=== PATIENT | female | born 1990 | race Caucasian/White ===

== ENCOUNTER → 2016-12-28 | Outpatient (CLI) | payer BC ==
[~2016-12-28] MED LIST: BUPR-79 PO; IUD'IUD INT UTER; PHEN-876 PO; SULF800T23 PO
[2016-12-31 10:08] LABS: CHLAMYDIA TRACH RNA*** NOT DETECTED (NOT DETECTED); GC (NEIS GONORRHOEAE)RNA** NOT DETECTED (NOT DETECTED)
== END | disposition home or self-care (01) ==
LOC: C.LABSPEC 10:43
PROVIDERS: ATTEND Physician Assistant
DX: Z01.419 Encounter for gynecological examination (general) (routine) without abnormal findings (principal)

== ENCOUNTER → 2016-12-28 | Outpatient (CLI) | payer BC | END | disposition home or self-care (01) | LOC: C.PAPS 11:46 | PROVIDERS: ATTEND Physician Assistant | DX: Z01.419 Encounter for gynecological examination (general) (routine) without abnormal findings (principal) ==

== ENCOUNTER 2017-03-28 01:03 | Emergency (ER) | payer BC ==
[~2017-03-28] VITALS: Ht 170.2 cm; Wt 67.6 kg
[2017-03-28 01:11] VITALS: Ht 170.2 cm; Wt 67.6 kg
[2017-03-28] MEDS ORDERED: ONDANSETRON INJ 2 MG/ML 2 ML VIAL IV STA (01:29)
[2017-03-28] MEDS ORDERED: KETOROLAC TROMETHAMINE 30 MG/ML VIAL IV STA (01:29)
[2017-03-28] MEDS ORDERED: SODIUM CHLORIDE 0.9% 1000ML 1,000 ML IV STA (01:29)
[2017-03-28] MEDS ORDERED: IUD'IUD INT UTER (01:35)
[2017-03-28] MEDS ORDERED: BUPR-79 PO (01:35)
[2017-03-28 01:43] LABS: URINE APPEARANCE TURBID (CLEAR); URINE BILIRUBIN NEG (NEG); URINE COLOR YELLOW; URINE NITRITE POS (NEG); URINE SPECIFIC GRAVITY 1.017 (1.000-1.030); UROBILINOGEN NEG (NEG); ZZUR CULT IF INDIC CLEAN CATCH YES
[2017-03-28 01:46] LABS: MANUAL MICROSCOPIC REQUIRED? NO; REVIEW REQ? YES
[2017-03-28 01:49] LABS: BASO % 0.3 %; BASO ABS # 0.04 K/uL (0-0.2); COMPLETE YES; EOS % 3.8 %; HEMATOCRIT 39.5 % (37-47); IG% 0.3 %; LYMPH % 18.2 %; LYMPH ABS # 2.23 K/uL (1.2-3.4); MEAN CELL VOLUME 88.2 fL (80-100); MEAN CORPUSCULAR HEMOGLOBIN 31.5 pg (25-34); MEAN CORPUSCULAR HGB CONC 35.7 g/dl (32-36); MEAN PLATELET VOLUME 10.4 fL (7.4-10.4); MONO % 10.5 %; NEUT % 66.9 %; PLATELET COUNT 238 K/uL (130-400); RED BLOOD COUNT 4.48 M/uL (4.2-5.4); WHITE BLOOD COUNT 12.22 K/uL (4.8-10.8)
[2017-03-28] MEDS ORDERED: CEFTRIAXONE SOD INJ 1 GM ADDVIAL IV STA (01:57)
[2017-03-28 02:07] LABS: CALCIUM 8.8 mg/dl (8.5-10.1); CREATININE 0.88 mg/dl (0.60-1.20); POTASSIUM 3.3 mmol/L (3.5-5.1)
[2017-03-28] MEDS ORDERED: POTASSIUM CHLORIDE 10 MEQ TABCR PO STA (02:13)
--- NOTE | 2017-03-28 03:55 | EMERGENCY ROOM VISIT NOTE ---
History First contact with patient: :19 Chief Complaint: BACK PAIN Stated Complaint: BACK PAIN,LRQ History of Present Illness The patient is a 27 year old female who presents to the Emergency Room with complaints of urinary symptoms for the past several days who developed right flank pain tonight, described as throbbing, ranging in severity 7 out of 10. Nothing makes it better or worse. No recent antibiotics. Patient denies chest pain, dyspnea, abdominal pain, fever, chills, vomiting, diarrhea, vaginal itching or discharge. Review of Systems See HPI for pertinent positives & negatives. A total of 10 systems reviewed and were otherwise negative. Past Medical/Surgical History Depression Social History Smoking Status: Current Some Day Smoker Alcohol Use: occasionally Drug Use: none Current/Historical Medications Scheduled Bupropion (Wellbutrin Sr), 150 MG PO DAILY Iud's (Paragard Intrauterine Restaurant Expeditor), Unknown Dose INT UTER DIRECTED Physical Exam Vital Signs Date Time Temp Pulse Resp B/P (MAP) Pulse Ox O2 Delivery O2 Flow Rate FiO2 03/28/17 02:51 69 18 109/69 99 Room Air 03/28/17 01:38 Room Air 03/28/17 01:11 36.9 90 18 119/81 99 Room Air Physical Exam VITALS: Vitals are noted on the nurse's note and reviewed by myself. Vital signs stable. GENERAL: Pleasant female, in no acute distress, nondiaphoretic, well-developed well-nourished. SKIN: The skin was without rashes, erythema, edema, or bruising. There is no tenting of the skin. Capillary reflex less than 2 seconds. HEAD: Normocephalic atraumatic. EARS: External auditory canals clear, tympanic membranes pearly brasher without erythema or effusion bilaterally. EYES: Pupils equal round and reactive to light and accommodation. Conjunctivae without injection, sclerae without icterus. Extraocular movements intact. NOSE: Patent, turbinates without inflammation or discharge. MOUTH: Mucous membranes moist. Pharynx without erythema or exudate. Uvula midline. Airway patent. Tongue does not deviate. NECK: Supple without nuchal rigidity. No lymphadenopathy. No thyromegaly. Cervical spine is nontender. No JVD. HEART: Regular rate and rhythm without murmurs gallops or rubs. LUNGS: Clear to auscultation bilaterally without wheezes, rales or rhonchi. No dullness to percussion. No retractions or accessory muscle use. ABDOMEN: Positive bowel sounds x 4. Normal tympanic percussion. Soft, nontender, without masses or organomegaly. Hanley sign negative. No guarding or rebound tenderness. Right CVA tenderness MUSCULOSKELETAL: No muscle atrophy, erythema, or edema noted. NEURO: Patient was alert and oriented to person place and time. Normal sensation to light and sharp touch. No focal neurological deficits. Medical Decision & Procedures Laboratory Results 03/28/17 01:39 Red Blood Count 4.48, Mean Corpuscular Volume 88.2, Mean Corpuscular Hemoglobin 31.5, Mean Corpuscular Hemoglobin Concent 35.7, Mean Platelet Volume 10.4, Neutrophils (%) (Auto) 66.9, Lymphocytes (%) (Auto) 18.2, Monocytes (%) (Auto) 10.5, Eosinophils (%) (Auto) 3.8, Basophils (%) (Auto) 0.3, Neutrophils # (Auto ) 8.17, Lymphocytes # (Auto) 2.23, Monocytes # (Auto) 1.28, Eosinophils # (Auto ) 0.46, Basophils # (Auto) 0.04 03/28/17 01:39 Test 03/28/17 01:28 03/28/17 01:39 Urine Color YELLOW Urine Appearance TURBID (CLEAR) Urine pH 5.0 (4.5-7.5) Urine Specific [place] 1.017 (1.000-1.030) Urine Protein 2+ (NEG) Urine Glucose (UA) NEG (NEG) Urine Ketones NEG (NEG) Urine Occult Blood 3+ (NEG) Urine Nitrite POS (NEG) Urine Bilirubin NEG (NEG) Urine Urobilinogen NEG (NEG) Urine Leukocyte Esterase LARGE (NEG) Urine WBC (Auto) >30 /hpf (0-5) Urine RBC (Auto) >30 /hpf (0-4) Urine Hyaline Casts (Auto) 1-5 /lpf (0-5) Urine Epithelial Cells (Auto) 10-20 /lpf (0-5) Urine Bacteria (Auto) 2+ (NEG) Urine Yeast (Auto) BUDDING (NONE PRSENT) Urine Test NEG (NEG) White Blood Count 12.22 K/uL (4.8-10.8) Red Blood Count 4.48 M/uL (4.2-5.4) Hemoglobin 14.1 g/dL (12.0-16.0) Hematocrit 39.5 % (37-47) Mean Corpuscular Volume 88.2 fL (80-100) Mean Corpuscular Hemoglobin 31.5 pg (25-34) Mean Corpuscular Hemoglobin Concent 35.7 g/dl (32-36) Platelet Count 238 K/uL (130-400) Mean Platelet Volume 10.4 fL (7.4-10.4) Neutrophils (%) (Auto) 66.9 % Lymphocytes (%) (Auto) 18.2 % Monocytes (%) (Auto) 10.5 % Eosinophils (%) (Auto) 3.8 % Basophils (%) (Auto) 0.3 % Neutrophils # (Auto) 8.17 K/uL (1.4-6.5) Lymphocytes # (Auto) 2.23 K/uL (1.2-3.4) Monocytes # (Auto) 1.28 K/uL (0.11-0.59) Eosinophils # (Auto) 0.46 K/uL (0-0.5) Basophils # (Auto) 0.04 K/uL (0-0.2) RDW Standard Deviation 39.2 fL (36.4-46.3) RDW Coefficient of Variation 12.3 % (11.5-14.5) Immature Granulocyte % (Auto) 0.3 % Immature Granulocyte # (Auto) 0.04 K/uL (0.00-0.02) Anion Gap 9.0 mmol/L (3-11) Est Creatinine Clear Calc Drug Dose 93.4 ml/min Estimated GFR () 104.4 Estimated GFR (Non- 90.0 BUN/Creatinine Ratio 20.0 (10-20) Calcium Level 8.8 mg/dl (8.5-10.1) Total Bilirubin 0.6 mg/dl (0.2-1) Direct Bilirubin 0.1 mg/dl (0-0.2) Aspartate Amino Transf (AST/SGOT) 10 U/L (15-37) Alanine Aminotransferase (ALT/SGPT) 16 U/L (12-78) Alkaline Phosphatase 65 U/L (45-117) Total Protein 6.9 gm/dl (6.4-8.2) Albumin 3.7 gm/dl (3.4-5.0) Lipase 152 U/L (73-393) Medications Administered Medications (Trade) Dose Ordered Sig/Beena Route Start Time Stop Time Status Last Admin Dose Admin Ketorolac Tromethamine (Toradol Inj) 30 mg NOW STAT IV 03/28/17 01:29 03/28/17 01:31 DC 03/28/17 01:46 30 MG Ondansetron HCl (Zofran Inj) 4 mg NOW STAT IV 03/28/17 01:29 03/28/17 01:31 DC 03/28/17 01:46 4 MG Sodium Chloride 1,000 ml @ 999 mls/hr Q1H1M STAT IV 03/28/17 01:29 03/28/17 02:29 DC 03/28/17 01:46 999 MLS/HR Ceftriaxone Sodium (Rocephin Inj) 1 gm NOW STAT IV 03/28/17 01:57 03/28/17 01:58 DC 03/28/17 02:42 1 GM Potassium Chloride (Klor-Con M10) 20 meq NOW STAT PO 03/28/17 02:13 03/28/17 02:14 DC 03/28/17 02:50 20 MEQ ED Course Prior records/ancillary studies reviewed. Triage Nursing notes reviewed. Additional history obtained from the family. The patient's history was concerning for urinary symptoms with right flank pain. Differential diagnosis: Etiologies such as renal colic, , pyelonephritis, appendicitis, diverticulitis, mesenteric ischemia, aortic pathology, infections, inflammatory bowel disease, PUD, biliary pathology, UTI, as well as others were entertained. Physical examination findings: As above. ER treatment provided: IV fluids, Rocephin, home pack Bactrim and Zofran On reassessment the patient felt better. Diagnostic interpretation by me: The labs revealed leukocytosis, urine concerning for infection and sent for culture. Negative hCG. Imaging studies: Ultrasound concerning for possible kidney and bladder infection per stat radiology It appears that the patient has isolated renal colic from a pyelonephritis. Patient had right CVA tenderness with infected urine and ultrasound concerning for infection. Patient was started on antibiotics. She felt much better. She was not vomiting. She is afebrile. She requested to leave. I felt this is reasonable. She is advised to take antibiotics as directed and to follow-up with family care in a day or 2 or here in the ER sooner for fevers, vomiting, increasing pain, worsening signs or symptoms or as needed. Patient does not have acute abdomen on exam. By the evaluation outlined above emergent etiologies such as appendicitis, diverticulitis, mesenteric ischemia, aortic pathology, inflammatory bowel disease, PUD, biliary pathology, as well as others were deemed relatively unlikely. The pt informed about the findings as listed above. All questions were answered and pleased with the treatment. Return instructions were outlined and the patient was discharged in stable condition. Outpatient prescription management: Bactrim, Zofran, Pyridium Referral: The patient was referred back to their primary care physician for follow-up in 2 to 3 days for a recheck of the current condition. Case reviewed by attending. Medical Decision As above Medication Reconcilliation Current Medication List: was personally reviewed by me Blood Pressure Screening Patient's blood pressure: Normal blood pressure Impression Primary Impression: Pyelonephritis Departure Information Dispostion Home / Self-Care Condition GOOD Referrals Lien Sullivan C.R.NMorales (PCP) Patient Instructions My [facility] Additional Instructions DO NOT drive, drink alcohol, operate machinery, or perform dangerous activities today. You were given medications in the ER that can affect your ability to safely function or operate a vehicle. Trimethoprim-Sulfamethoxazole(Bactrim DS): Take one pill twice daily for 7 days for your urine infection. All antibiotics can cause diarrhea. If this occurs and you feel worse or it does not resolve in 1-2 days follow up with your doctor or return to the Emergency Department as this could be signs of serious underlying problems. Any medication can cause an allergic reaction, stop the pills immediately and return to the ER for rash, hives, breathing difficulties, or swelling. Pyridium 200mg: Take one pill three times daily as needed for urinary discomfort. This medication will turn your urine orange. This is normal and nothing to be concerned about. Zofran 4 mg: Take one every six hours as needed for nausea. Avoid alcohol, operating machinery or dangerous equipment, working on ladders or roofs, DRIVING , or situations where being under the influence may be dangerous. Ibuprofen(Motrin, Advil) may be used for fever or pain. Use 600mg every six hours as needed. Take with food. Avoid using more than 2400mg in a 24 hour period. Do not use 2400mg per day for more than three consecutive days without physician direction. Prolonged inappropriate use can lead to stomach upset or ulcers. (AND/OR) Acetaminophen(Tylenol) may be used for fever or pain. Use 1000mg every six hours as needed. Avoid using more than 3000mg in a 24 hour period. Rest and drink plenty of fluids as tolerated. Slow sips of water or sports drinks are recommended instead of large amounts all at once. Continue current medications. Once your stomach is settled start with a clear liquid diet (jello, soup broth, etc.) and then advance as tolerated. You should avoid full, heavy meals for about 24 hrs from the time your symptoms resolved. Return to the ER immediately for worsening or persistent abdominal/back pain, vomiting, fevers, worsening of your condition, or as needed. Follow up with your primary physician within 2-3 days for a recheck of the current condition.
[2017-03-28] MEDS ORDERED: SULF800T23 PO (03:58)
[2017-03-28] MEDS ORDERED: PHEN-876 PO (03:58)
[2017-03-28] MEDS ORDERED: SEPTRA DS HOME PACK 1 EA VIAL PO ONE (04:00)
[2017-03-28] MEDS ORDERED: PHENAZOPYRIDINE HOME PACK 200 MG VIAL PO ONE (04:00)
[2017-03-28] MEDS ORDERED: ONDANSETRON HOME PACK 4MG OD TAB PO ONE (04:00)
[2017-03-28 04:08] VITALS: BP 98/54; PULSE 58; TEMP 36.9; O2SAT 97
--- NOTE | 2017-03-28 07:20 | DIAGNOSTIC IMAGING REPORT ---
RENAL ULTRASOUND HISTORY: right flank pain COMPARISON: None. FINDINGS: Right kidney: 11.5 cm. No hydronephrosis. Normal corticomedullary differentiation and cortical thickness. Mild urothelial thickening of the right renal pelvis. Left kidney: 10.4 cm. No hydronephrosis. Normal corticomedullary differentiation and cortical thickness. Bladder: Mild bladder wall thickening with increased vascularity. IMPRESSION: 1. Mild bladder wall thickening suggestive of a cystitis. 2. There is also mild urothelial thickening of the right renal pelvis. This may represent a pyelitis. Recommend correlation with urinalysis. 3. No hydronephrosis. Electronically signed by: Isreal Berumen M.D. 03/28/2017 7:18 AM Dictated Date/Time: 03/28/2017 7:17 AM
== END 2017-03-28 04:09 | disposition home or self-care (01) ==
LOC: C.EDB 01:05
DX: N10 Acute pyelonephritis (principal); F32.9 Major depressive disorder, single episode, unspecified; F17.200 Nicotine dependence, unspecified, uncomplicated; Z79.899 Other long term (current) drug therapy

== ENCOUNTER → 2017-07-17 | Outpatient (CLI) | payer BC ==
[~2017-07-17] MED LIST changes: -PHEN-876 PO; -SULF800T23 PO
== END | disposition home or self-care (01) ==
LOC: C.LAB 11:27
PROVIDERS: ATTEND Physician Assistant
DX: Z30.432 Encounter for removal of intrauterine contraceptive device (principal); N92.0 Excessive and frequent menstruation with regular cycle